=== PATIENT | male | born 2000 | race Caucasian/White ===

== ENCOUNTER 2020-04-07 10:49 | Emergency (ER) | payer MEDICAID, SELFPAY ==
[~2020-04-07] VITALS: Ht 170.2 cm; Wt 70.3 kg
[2020-04-07 10:52] VITALS: Ht 170.2 cm; Wt 70.3 kg
[2020-04-07 11:35] VITALS: BP 126/74
[2020-04-07 12:30] LABS: BASOPHIL % 0.3 % (0-2); CHLORIDE SERUM 101 mmol/L (98-107); GFR1 > 60 mL/min; GLUCOSE SERUM 104 mg/dL (74-106); PLATELET COUNT 278 x10^3mcL (130-400); POTASSIUM SERUM 3.5 mmol/L (3.5-5.1); RED CELL DISTRIBUTION WIDTH 16.9 % (11.5-14.5); SODIUM SERUM 136 mmol/L (136-145)
[2020-04-07 12:37] LABS: ALBUMIN 4.5 g/dL (3.4-5.0); ALKALINE PHOSPHATASE 65 U/L (46-116); AST/SGOT 16 U/L (15-37); BILIRUBIN TOTAL 1.78 mg/dL (0.20-1.00); TOTAL PROTEIN, SERUM 7.3 g/dL (6.4-8.2)
[2020-04-07 12:39] LABS: ALT/SGPT 30 U/L (16-63)
== END 2020-04-07 14:32 | disposition home or self-care (01) ==
LOC: ED 10:49
PROVIDERS: Emergency Medicine
DX: F41.9 Anxiety disorder, unspecified (principal); R19.7 Diarrhea, unspecified; H53.8 Other visual disturbances; R53.1 Weakness
CPT/HCPCS: J7030; Q0092